=== PATIENT | male | born 1975 | race Caucasian/White ===

== ENCOUNTER 2016-08-04 07:39 | Emergency (ER) | payer BC ==
[2016-08-04 07:44] VITALS: BP 106/67
--- NOTE | 2016-08-04 14:52 | UC ---
Cristobal Warner Aidan, scribed for Cristina Sellers MD on 08/04/16 at 0815 . Skin Complaint HPI - HPI Summary HPI Summary: 41 y/o male presents to the Urgent Care with a complaint of an acute, constant, moderate, red, bumpy rash on the left cheek that began roughly 2 weeks ago and has spread in the past 2 days. For the past month, he had a similar rash on the right cheek that has resolved. There is no associated pain or itch. Pt applied cortisone, which did not reduce the rash. He has been cleaning the rash with Diol soap and water. He denies using hydrogen peroxide, after shave, or alcohol on the rash. Additionally, he denies any cough, cold, or previous similar rash. Pt is a diabetic. His last hemoglobin A1C was 6.9. Additional Hx of chicken pox in the past. For allergies, he uses antihistamines daily. - History of Current Complaint Chief Complaint: UCRas Time Seen by Provider: 08/04/16 07:45 Stated Complaint: RASH Hx Obtained From: Patient Onset/Duration: Sudden Onset, Lasting Weeks, Still Present Skin Exposure Onset/Duration: Weeks Ago, Worse Since: - 2 days ago Timing: Constant Onset Severity: Moderate Current Severity: Moderate Pain Intensity: 0 - Pt stated that he has no pain Pain Scale Used: 0-10 Numeric Location: Face - left cheek Character: Redness, Raised - hive-like bumps Aggravating: Other - unknown Alleviating: Other - unknown Associated Signs & Symptoms: Positive: Negative Related History: Possible Reaction to: Environmental Exposure - Allergy/Home Medications Allergies/Adverse Reactions: Allergies Allergy/AdvReac Type Severity Reaction Status Date / Time Dust Mite Extract Allergy Intermediate Wheezing Verified 08/02/15 07:33 Prochlorperazine Allergy See Comment Verified 08/02/15 07:33 [From Compazine] Hay Fever Allergy Intermediate Wheezing Uncoded 01/03/15 09:02 Home Medications: Home Medications Lisinopril [Zestril 10 MG-] 10 mg PO DAILY 08/04/16 [History Confirmed 08/04/16] Review of Systems Constitutional: Negative Skin: Rash - to left cheek Eyes: Negative ENT: Negative Respiratory: Negative Cardiovascular: Negative Gastrointestinal: Negative Genitourinary: Negative Motor: Negative Neurovascular: Negative Musculoskeletal: Negative Neurological: Negative Psychological: Negative All Other Systems Reviewed And Are Negative: Yes PMH/Surg Hx/FS Hx/Imm Hx Endocrine History: Diabetes Other History Of: Negative For: Anticoagulant Therapy - Surgical History Surgical History: Yes Surgery Procedure, Year, and Place: open heart surgery 2000, TESTICULAR SURGERY - Family History Known Family History: Positive: Hypertension - Social History Occupation: Employed Full-time Lives: Alone Alcohol Use: None Substance Use Type: None Smoking Status (MU): Never Smoked Tobacco - Immunization History Most Recent Influenza Vaccination: 2011 Most Recent Tetanus Shot: less then 10 years ago Physical Exam Triage Information Reviewed: Yes Appearance: Well-Nourished Vital Signs: Initial Vital Signs Temp 97.6 F 08/04/16 07:42 Pulse 66 08/04/16 07:42 Resp 18 08/04/16 07:42 BP 106/67 08/04/16 07:42 Pulse Ox 98 08/04/16 07:42 Vital Signs Reviewed: Yes Eye Exam: Normal ENT Exam: Normal ENT: Positive: Normal ENT inspection Neck exam: Normal Neck: Positive: No Lymphadenopathy Respiratory Exam: Normal, Other - no dyspnea, no tachypnea Cardiovascular Exam: Normal, Other - heart rate regular, good general skin color , good capillary refill Abdominal Exam: Normal Abdomen Description: Positive: Nontender, No Organomegaly, Soft Bowel Sounds: Positive: Present Musculoskeletal Exam: Normal Musculoskeletal: Positive: Strength Intact Neurological Exam: Normal, Other - non focal, grossly intact Psychological Exam: Normal, Other - conversing easily and appropriately Skin: Positive: rashes - Red bumpy area, irregularly shaped at maximum length of 13cm and maximum width of 3.5cm Course/Dx - Course Course Of Treatment: S/sx c/w dermatitis. Unclear etiology but likely contact and irritantant related. C/n exclude allergic-type. Has upcoming appt with Court Assistant next month. Reports that prednisone taper has helped in the past (none recent). Considered zoster, but unlikely 2/2 not in specific dermatome, also recent opposite side, also similar sx as above in the past. Recommend facial shaving holiday at least one week, he agrees. Less likely cellulitic, but rx mupirocin in the event of bioburden increase. Rx prednisone taper, d/w pt. Will watch blood glucose closely. Avoid astringents, and start mild unscented soap. Questions answered as posed answered to the best of my ability. - Diagnoses Provider Diagnoses: facial dermatitis Discharge - Discharge Plan Condition: Stable Disposition: HOME Prescriptions: Mupirocin 2% OINT* [Bactroban 2 % Oint*] 1 applic TOPICAL DAILY #1 tube predniSONE TAB* [Deltasone TAB*] 10 mg PO DAILY #15 tab Patient Education Materials: Dermatitis (ED) Referrals: Kavita Carroll RN [Primary Care Provider] - Additional Instructions: Avoid astringents. Switch to mild unscented white soap. Minimize washing face to one time daily, if possible. Avoid shaving at least one week. Avoid direct sun exposure to the irritated areas (consider sunscreen or stay indoors while symptoms are ongoing). Avoid hot water to affected areas Avoid swimming pool water to affected areas while still inflamed. Follow up with Court Assistant as scheduled next month. Follow up Len Sanchez NP, per routine. Seek medical attention for worse or new problems. Check blood sugars frequently (twice a day if possible) while taking prednisone. The documentation as recorded by the Cristobal cardenas Aidan accurately reflects the service I personally performed and the decisions made by me, Cristina Sellers MD.
== END 2016-08-04 08:24 | disposition home or self-care (01) ==
LOC: UCEAST 07:39
DX: L30.9 Dermatitis, unspecified (principal); E11.9 Type 2 diabetes mellitus without complications
CPT/HCPCS: 99212; G0463

== ENCOUNTER 2017-06-29 07:11 | Emergency (ER) | payer BC ==
[2017-06-29 07:27] VITALS: BP 108/71
--- NOTE | 2017-06-29 07:51 | UC ---
Makayla Warner Julia, scribed for Raquel Bruno MD on 06/29/17 at 0740 . Skin Complaint HPI - HPI Summary HPI Summary: This patient is a 41 year old F [place] [facility] [place] chief complaint of poison rachel like symptoms on his left arm since 06/17/17 that is getting worse. Symptoms similar to previous poison rachel reactions. Pt has been treating with topical Benadryl and topical steroids without relief. pt states when get warm or sweaty itching is worse. 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 Patient denies CP SOB, difficulty eating. No concern eye or face involvement. Medications and allergies reviewed. - History of Current Complaint Chief Complaint: UCSkin Time Seen by Provider: 06/29/17 07:31 Stated Complaint: SKIN COMPLAINT Hx Obtained From: Patient Onset/Duration: Lasting Weeks, Still Present Skin Exposure Onset/Duration: Weeks Ago Timing: Constant Onset Severity: Mild Current Severity: Moderate Pain Intensity: 0 Location: Discrete, Other - left arm Character: Pruritus, Redness Aggravating Factor(s): Nothing Alleviating Factor(s): Nothing Associated Signs & Symptoms: Positive: Negative Related History: Possible Reaction to: Environmental Exposure - Allergy/Home Medications Allergies/Adverse Reactions: Allergies Allergy/AdvReac Type Severity Reaction Status Date / Time house dust mite Allergy Wheezing Verified 06/29/17 07:19 prochlorperazine Allergy See Comment Verified 06/29/17 07:19 [From Compazine] Hay Fever Allergy Intermediate Wheezing Uncoded 06/29/17 07:19 Review of Systems Constitutional: Negative Skin: Rash Respiratory: Negative Cardiovascular: Negative All Other Systems Reviewed And Are Negative: Yes PMH/Surg Hx/FS Hx/Imm Hx Previously Healthy: Yes Other History Of: Negative For: Anticoagulant Therapy - Surgical History Surgical History: Yes Surgery Procedure, Year, and Place: open heart surgery 2000, TESTICULAR SURGERY x2 - Family History Known Family History: Positive: Hypertension - Social History 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 Alcohol Use: None Substance Use Type: None Smoking Status (MU): Never Smoked Tobacco - Immunization History Most Recent Influenza Vaccination: 2011 Most Recent Tetanus Shot: less then 10 years ago Physical Exam Triage Information Reviewed: Yes Appearance: Well-Appearing, No Pain Distress, Well-Nourished Vital Signs: Initial Vital Signs Temp 97.4 F 06/29/17 07:23 Pulse 70 06/29/17 07:23 Resp 14 06/29/17 07:23 BP 108/71 06/29/17 07:23 Pulse Ox 98 06/29/17 07:23 Vital Signs Reviewed: Yes Eye Exam: Normal Eyes: Positive: Conjunctiva Clear ENT: Positive: Normal ENT inspection, Hearing grossly normal, Pharynx normal Neck exam: Normal Neck: Positive: Supple, Nontender, No Lymphadenopathy Respiratory Exam: Normal Respiratory: Positive: Chest non-tender, Lungs clear, Normal breath sounds, No respiratory distress, No accessory muscle use Cardiovascular Exam: Normal Cardiovascular: Positive: RRR, No Murmur Musculoskeletal Exam: Normal Neurological Exam: Normal Neurological: Positive: Alert Psychological Exam: Normal Psychological: Positive: Normal Response To Family Skin: Positive: Other - Pt with raised blistery rash to left prox, posterior forearm c/w contact dermatitis. Patches of dry scaling surrounding. Pt with small dime size lesion of same on right elbow Course/Dx - Course Course Of Treatment: pt with contact dermatitis to left forearm adn right elbow. pt otherwise well appearing. will start prednisone taper. avoid heat. return precautions - Diagnoses Provider Diagnoses: contact dermatitis Discharge - Sign-Out/Discharge Documenting (check all that apply): Discharge/Admit/Transfer - Discharge Plan Condition: Stable Disposition: HOME Prescriptions: predniSONE TAB* [Deltasone TAB*] 20 mg PO DAILY #13 tab Patient Education Materials: Poison Rachel (ED) Referrals: Laura KENNEDY BOARD DESIGN ENGINEERKavita [Primary Care Provider] - Additional Instructions: - Take prednisone exactly as prescribed until gone - starting today --Avoid getting over heated (hot showers, hot tubs, exercise) for at least 48 hours - this will make itching worse - Okay to take Benadryl (1 tablets) every 6 hours as needed. This medication may cause drowsiness - do NOT drive, operate machinery or drink alcohol while taking Benadryl -Take pepcid as prescribed - 2 times daily for 7 days - Try to avoid aspirin, NSAIDs (Motrin, Aleve, Naprosyn) for 2-3 days - Okay to apply cool compresses to the area of injury - Contact your doctor or return here with questions or concerns - Billing Disposition and Condition Condition: STABLE Disposition: HOME The documentation as recorded by the Makayla cardenas Julia accurately reflects the service I personally performed and the decisions made by me, Raquel Bruno MD.
== END 2017-06-29 07:52 | disposition home or self-care (01) ==
LOC: UCEAST 07:11
DX: L25.9 Unspecified contact dermatitis, unspecified cause (principal)
CPT/HCPCS: 99212; G0463

== ENCOUNTER 2017-07-29 07:21 | Emergency (ER) | payer BC ==
[2017-07-29 07:31] VITALS: BP 109/66
--- NOTE | 2017-07-29 08:22 | UC ---
Favio Warner Tenzin, scribed for Raquel Bruno MD on 07/29/17 at 0820 . Respiratory Complaint HPI - HPI Summary HPI Summary: Pt is a 42 years old male presenting to the [facility] complaining of cold and cough for over two weeks. Pt is also complaining of cough productive with white and yellow sputum. Pt has drainage down in his throat. Pt notes that he took Sudafed this morning and it helps to alleviate his pain. No aggravating factors were noted. no sob, sob. no wheeze. He does not smoke, drinks or do drugs. He reports that he has allergy and he takes medications for it. + sick contact pt's medications reviewed this visit - History of Current Complaint Chief Complaint: UCRespiratory Stated Complaint: RESP ISSUE Time Seen by Provider: 07/29/17 08:07 Hx Obtained From: Patient Onset/Duration: Lasting Weeks - two weeks. Pain Intensity: 0 Associated Signs And Symptoms: Negative: Fever, Chills - Allergies/Home Medications Allergies/Adverse Reactions: Allergies Allergy/AdvReac Type Severity Reaction Status Date / Time house dust mite Allergy Wheezing Verified 06/29/17 07:19 prochlorperazine Allergy See Comment Verified 06/29/17 07:19 [From Compazine] Hay Fever Allergy Intermediate Wheezing Uncoded 06/29/17 07:19 PMH/Surg Hx/FS Hx/Imm Hx - Additional Past Medical History Additional PMH: NEGATIVE: [place]. Endocrine History: Diabetes Other History Of: Negative For: Anticoagulant Therapy - Surgical History Surgical History: Yes Surgery Procedure, Year, and Place: open heart surgery 2000, TESTICULAR SURGERY x2 - Family History Known Family History: Positive: Hypertension - Social History Occupation: Employed Full-time Lives: With Family Alcohol Use: None Substance Use Type: None Smoking Status (MU): Never Smoked Tobacco - Immunization History Most Recent Influenza Vaccination: 2011 Most Recent Tetanus Shot: less then 10 years ago Review of Systems Constitutional: Negative Skin: Negative Eyes: Negative ENT: Other - drainage down his throat. Respiratory: Cough, Other - Cold Cardiovascular: Negative Gastrointestinal: Negative Genitourinary: Negative Motor: Negative Neurovascular: Negative Musculoskeletal: Negative Neurological: Negative Psychological: Negative All Other Systems Reviewed And Are Negative: Yes Physical Exam - Summary Physical Exam Summary: Vital Signs Reviewed: Yes A+Ox3, no distress congested Eyes: Conjunctiva Clear, JADYN. EOM intact and full ENT: Hearing grossly normal TM x 2 clear, mmoist, uvula midline, turbinates inflammed and boggy, + PND no exudate, no erythema Neck: Positive: Supple no submandibular LA Respiratory: Positive: No respiratory distress, No accessory muscle use + CTA throughout no w/r coarse cough Cardiovascular: RRR nl s1, s2 no m/r CBT <2 sec abd soft + BS nt/nd no guarding, no distension Musculoskeletal Exam: SHARMA x 4 without difficulty Strength Intact, ROM Intact Neurological: Positive: Alert, + sensation throughout Psychological: Positive: Normal Response To Family Skin: Positive: no rash, no ecchymosis Triage Information Reviewed: Yes Vital Signs: Initial Vital Signs Temp 98.2 F 07/29/17 07:28 Pulse 78 07/29/17 07:28 Resp 16 07/29/17 07:28 BP 109/66 07/29/17 07:28 Pulse Ox 99 07/29/17 07:28 Diagnostic Evaluation - Laboratory O2 Sat by Pulse Oximetry: 99 Respiratory Course/Dx - Course Course Of Treatment: Pt with cough anc congestion x 2 weeks. pt has trialed otc med wtihout relief. Pt reprot tactile fevers. Rx abx. hdyrate. decongestant. flonase. secretion precautions - Differential Dx/Diagnosis Provider Diagnoses: acute bronchitis Discharge - Sign-Out/Discharge Documenting (check all that apply): Discharge/Admit/Transfer - Discharge Plan Condition: Stable Disposition: HOME Prescriptions: Albuterol HFA INHALER* [Ventolin HFA Inhaler*] 1 puff INH Q4H PRN #1 mdi PRN Reason: wheeze Azithromycin TAB* [Zithromax TAB (Z-SARAH) 250 mg #6 tabs] 2 tab PO .TODAY, THEN 1 DAILY #1 sarah Patient Education Materials: Acute Bronchitis (ED) Referrals: Laura KENNEDY REEL HOOKER,Kavita [Primary Care Provider] - Additional Instructions: - Take antibiotics exactly as prescribed until gone -Use your albuterol puffer - 2 puffs ever 4-6 hours for the next 2 days - then as needed - continue to take Zytrec and Sudafed -Stay well hydrated - avoid excess caffeine and all alcohol - eat regular, healthy meals - : These infections are spread by oral secretions. Do not share eating or drinking utensils. Frequent hand washing is important. Clean items that may get your secretions on them such as cell phones, ipads, computer mouse, television remotes. Once you have been on antbiotics for 2 days, change your pillowcase and your toothbrush. Clean your CPAP machine as well -Call your doctor, return here or go to the emergency department with any questions or concerns - Billing Disposition and Condition Condition: STABLE Disposition: Home The documentation as recorded by the Favio cardenas Tenzin accurately reflects the service I personally performed and the decisions made by me, Raquel Bruno MD.
== END 2017-07-29 08:25 | disposition home or self-care (01) ==
LOC: UCEAST 07:21
DX: J20.9 Acute bronchitis, unspecified (principal); E11.9 Type 2 diabetes mellitus without complications; Z91.09 Other allergy status, other than to drugs and biological substances; Z88.8 Allergy status to other drugs, medicaments and biological substances
CPT/HCPCS: 99212; G0463

== ENCOUNTER 2017-08-27 20:29 | Emergency (ER) | payer BC ==
[2017-08-27] MEDS ORDERED: Ondansetron ODT TAB* 4 MG SL PRN (20:59)
--- NOTE | 2017-08-27 21:20 | ED ---
Abdominal Pain/Male - History of Current Complaint Chief Complaint: UCGI Stated Complaint: DIARRHEA, STOMACH ACHE Time Seen by Provider: 08/27/17 20:47 Hx Obtained From: Patient Onset/Duration: Lasting Days - diarrhea and vomiting for the last several days. some abdominal pain , no fever Timing: Intermittent Severity Initially: Moderate Severity Currently: Moderate Pain Intensity: 0 Location: Diffuse Radiates: No Character: Dull Aggravating Factor(s): Nothing Alleviating Factor(s): Bowel Movement - Risk Factors Testicular Torsion: Negative Cardiac Risk Factors: Negative - Allergies/Home Medications Allergies/Adverse Reactions: Allergies Allergy/AdvReac Type Severity Reaction Status Date / Time house dust mite Allergy Wheezing Verified 06/29/17 07:19 prochlorperazine Allergy See Comment Verified 06/29/17 07:19 [From Compazine] Hay Fever Allergy Intermediate Wheezing Uncoded 06/29/17 07:19 PMH/Surg Hx/FS Hx/Imm Hx Previously Healthy: Yes Endocrine/Hematology History: Reports: Hx Diabetes - type 2 Denies: Hx Anticoagulant Therapy, Hx Thyroid Disease Cardiovascular History: Reports: Other Cardiovascular Problems/Disorders - CONGENTIAL HEART DISORDER REPAIRED AT AGE 25 Denies: Hx Hypertension Respiratory History: Reports: Other Respiratory Problems/Disorders - ALLERGIES Denies: Hx Asthma, Hx Chronic Obstructive Pulmonary Disease (COPD) GI History: Denies: Hx Ulcer - Cancer History Cancer Type, Location and Year: 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) - Surgical History Surgery Procedure, Year, and Place: open heart surgery 2000, TESTICULAR SURGERY x2 Infectious Disease History: No Infectious Disease History: Denies: Hx Clostridium Difficile, Hx Hepatitis, Hx Human Immunodeficiency Virus (HIV), Hx of Known/Suspected MRSA, Hx Shingles, Hx Tuberculosis, Hx Known/ Suspected VRE, Hx Known/Suspected VRSA, History Other Infectious Disease, Traveled Outside the [place] in Last 30 Days - Family History Known Family History: Positive: Hypertension - Social History Alcohol Use: None Substance Use Type: Reports: None Smoking Status (MU): Never Smoked Tobacco Review of Systems Constitutional: Negative Eyes: Negative ENT: Negative Cardiovascular: Other - congenital heart disease VSD repaired age 25 Respiratory: Negative Positive: Abdominal Pain, Vomiting, Diarrhea Genitourinary: Other - hx. of testicular CA 2003, 2014 Positive: Rash Neurological: Negative Psychological: Normal Positive: Anxious All Other Systems Reviewed And Are Negative: Yes Physical Exam Triage Information Reviewed: Yes Vital Signs On Initial Exam: Initial Vitals Temp Pulse Resp BP Pulse Ox 36.8 C 96 20 117/77 98 08/27/17 20:47 08/27/17 20:47 08/27/17 20:47 08/27/17 20:47 08/27/17 20:47 Vital Signs Reviewed: Yes Appearance: Positive: Well-Appearing Skin: Positive: Warm Head/Face: Positive: Normal Head/Face Inspection Eyes: Positive: Normal ENT: Positive: Normal ENT inspection Neck: Positive: Supple Respiratory/Lung Sounds: Positive: Clear to Auscultation Cardiovascular: Positive: Normal, RRR Abdomen Description: Positive: Nontender, No Organomegaly, Soft Bowel Sounds: Positive: Present Musculoskeletal: Positive: Normal Diagnostics - Vital Signs Vital Signs Temp Pulse Resp BP Pulse Ox 08/27/17 20:47 36.8 C 96 20 117/77 98 - Laboratory Lab Statement: Any lab studies that have been ordered have been reviewed, and results considered in the medical decision making process. Discharge - Discharge Plan Referrals: Radha Jordan [Primary Care Provider] -
[2017-08-27 21:22] VITALS: BP 114/75
[2017-08-27] MEDS ORDERED: Ondansetron ODT TAB* 4 MG PO ONE (21:24)
== END 2017-08-27 22:05 | disposition home or self-care (01) ==
LOC: UCCORT 20:29
DX: R19.7 Diarrhea, unspecified (principal); R10.9 Unspecified abdominal pain; Z91.048 Other nonmedicinal substance allergy status; Z88.8 Allergy status to other drugs, medicaments and biological substances; E11.9 Type 2 diabetes mellitus without complications
CPT/HCPCS: 99212; A9270-GY; G0463

== ENCOUNTER 2017-10-18 14:10 | Emergency (ER) | payer BC ==
--- NOTE | 2017-10-19 09:00 | UC ---
Discharge - Sign-Out/Discharge Documenting (check all that apply): Post-Discharge Follow Up All imaging exams completed and their final reports reviewed: No Studies - Discharge Plan Disposition: LEFT WITHOUT BEING SEEN Referrals: Radha Jordan [Primary Care Provider] - - Billing Disposition and Condition Disposition: Left Without Being Seen
== END 2017-10-18 14:25 | disposition left against medical advice (07) ==
LOC: UCCORT 14:10
DX: R09.89 Other specified symptoms and signs involving the circulatory and respiratory systems (principal); Z53.21 Procedure and treatment not carried out due to patient leaving prior to being seen by health care provider

== ENCOUNTER 2017-10-18 17:14 | Emergency (ER) | payer BC ==
--- NOTE | 2017-10-18 18:17 | ED ---
GI/ HPI - HPI Summary HPI Summary: The pt is a 42 y/[facility] swallowing since 13:45 today. He was transferred from [facility] after a hamburger stuck in is throat. Although improved, the pt feels like there is a foreign body in his throat. He notes esophageal pain rated 2/10 in intensity but denies dyspnea. - History of Current Complaint Chief Complaint: EDForeignBodyEsophag Time Seen by Provider: 10/18/17 18:10 Stated Complaint: F/B IN THROAT Hx Obtained From: Patient Onset/Duration: Started Hours Ago - At 13:45 today, Still Present Timing: Constant Severity: Mild Pain Intensity: 2 Location of Pain: Other - Esophageal Associated Signs and Symptoms: Positive: Negative - Dyspnea - Allergy/Home Medications Allergies/Adverse Reactions: Allergies Allergy/AdvReac Type Severity Reaction Status Date / Time house dust mite Allergy Wheezing Verified 10/18/17 18:54 prochlorperazine Allergy See Comment Verified 10/18/17 18:54 [From Compazine] Hay Fever Allergy Intermediate Wheezing Uncoded 10/18/17 18:54 PMH/Surg Hx/FS Hx/Imm Hx Previously Healthy: No Endocrine/Hematology History: Reports: Hx Diabetes - type 2 Denies: Hx Anticoagulant Therapy, Hx Thyroid Disease Cardiovascular History: Reports: Other Cardiovascular Problems/Disorders - CONGENTIAL HEART DISORDER REPAIRED AT AGE 25 Denies: Hx Hypertension Respiratory History: Reports: Other Respiratory Problems/Disorders - ALLERGIES Denies: Hx Asthma, Hx Chronic Obstructive Pulmonary Disease (COPD) GI History: Denies: Hx Ulcer - Cancer History Cancer Type, Location and Year: 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) - Surgical History Surgery Procedure, Year, and Place: open heart surgery 2000, TESTICULAR SURGERY x2 - Immunization History Immunizations Up to Date: Yes Infectious Disease History: No Infectious Disease History: Denies: Hx Clostridium Difficile, Hx Hepatitis, Hx Human Immunodeficiency Virus (HIV), Hx of Known/Suspected MRSA, Hx Shingles, Hx Tuberculosis, Hx Known/ Suspected VRE, Hx Known/Suspected VRSA, History Other Infectious Disease, Traveled Outside the [place] in Last 30 Days - Family History Known Family History: Positive: Hypertension - Social History Occupation: Employed Full-time Lives: Alone Alcohol Use: None Substance Use Type: Reports: None Smoking Status (MU): Never Smoked Tobacco Review of Systems Positive: Other - Esophageal pain, difficulty swallowing Respiratory: Negative - Dyspnea All Other Systems Reviewed And Are Negative: Yes Physical Exam - Summary Physical Exam Summary: Appearance: The patient is well-nourished in no acute distress and in no acute pain. Skin: The skin is warm and dry and skin color reflects adequate perfusion. HEENT: The head is normocephalic and atraumatic. The pupils are equal and reactive. The conjunctivae are clear and without drainage. Nares are patent and without drainage. Mouth reveals moist mucous membranes and the throat is without erythema and exudate. The external ears are intact. The ear canals are patent and without drainage. The tympanic membranes are intact. Neck: The neck is supple with full range of motion and non-tender. There are no carotid bruits. There is no neck vein distension. Respiratory: Chest is non-tender. Lungs are clear to auscultation and breath sounds are symmetrical and equal. Cardiovascular: Heart is regular rate and rhythm. There is no murmur or rub auscultated. There is no peripheral edema and pulses are symmetrical and equal. Abdomen: The abdomen is soft and non-tender. There are normal bowel sounds heard in all four quadrants and there is no organomegaly palpated. Musculoskeletal: There is no back tenderness noted. Extremities are non-tender with full range of motion. There is good capillary refill. There is no peripheral edema or calf tenderness elicited. Neurological: Patient is alert and oriented to person, place and time. The patient has symmetrical motor strength in all four extremities. Cranial nerves are grossly intact. Deep tendon reflexes are symmetrical and equal in all four extremities. Psychiatric: The patient has an appropriate affect and does not exhibit any anxiety or depression. Triage Information Reviewed: Yes Vital Signs On Initial Exam: Initial Vitals Temp Pulse Resp BP Pulse Ox 98.7 F 88 16 123/81 96 10/18/17 17:15 10/18/17 17:15 10/18/17 17:15 10/18/17 17:15 10/18/17 17:15 Vital Signs Reviewed: Yes Diagnostics - Vital Signs Vital Signs Temp Pulse Resp BP Pulse Ox 10/18/17 17:48 86 123/81 94 10/18/17 17:15 98.7 F 88 16 123/81 96 - Laboratory Lab Statement: Any lab studies that have been ordered have been reviewed, and results considered in the medical decision making process. GIGU Course/Dx - Course Course Of Treatment: Mr. Gonzalez has been having episodes of difficulty swallowing for months and today after eating a hamburger he became unable to manage his secretions. He went to [facility] care and was transferred here to the emergency department. On arrival here he is feeling a little bit better and was given a test drink of water. He was unable to pass the water and Dr. Schmitt was contacted and came to the emergency department. Dr. Schmitt removed a meat foreign body from the esophagus and set him up for follow-up appointment secondary to multiple polyps. He was recovered from conscious sedation and discharged in stable condition. - Diagnoses Provider Diagnoses: Esophageal foreign body - Physician Notifications Discussed Care Of Patient With: Amor Schmitt - Game Preserve Manager Time Discussed With Above Provider: 20:01 Instructed by Provider To: MD Will See In ED Discharge - Sign-Out/Discharge Documenting (check all that apply): Patient Departure - DC - Discharge Plan Condition: Improved Disposition: HOME Patient Education Materials: Esophageal Foreign Body (ED) Referrals: Radha Jordan [Primary Care Provider] - 3 Days Amor Schmitt MD [Medical Doctor] - Additional Instructions: Return to ED for any new or worsening symptoms Follow up with the housing assistant this week. - Billing Disposition and Condition Condition: IMPROVED Disposition: Home - Attestation Statements Document Initiated by Kenibe: Yes Documenting Scribe: Lesli Matos Provider For Whom Kenibe is Documenting (Include Credential): Dr. Paul Michel MD Scribe Attestation: Lesli Warner scribed for Dr. Paul Michel MD on 10/19/17 at 1252. Scribe Documentation Reviewed: Yes Provider Attestation: The documentation as recorded by the Lesli cardenas accurately reflects the service I personally performed and the decisions made by me, Dr. Paul Michel MD
[2017-10-18] MEDS ORDERED: fentaNYL* 50 MCG/ML 2 ML VIAL (100 MCG VIAL) ONE (19:49)
[2017-10-18] MEDS ORDERED: Midazolam* 1 MG/ML 10 ML VIAL (10 MG) ONE (19:49)
--- NOTE | 2017-10-18 20:56 | CONS ---
GASTROENTEROLOGY CONSULT: DATE OF CONSULT: 10/18/17 CONSULTING PHYSICIAN: Jimi Michel. REASON FOR CONSULT: Meat impaction in the esophagus since trying to eat a hamburger at noon today. 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 He has not lost any weight. Today, eating a hamburger, it lodged and he has been unable to handle any fluids since then. He has had a little bit of salivary expectoration. He has a history of acid reflux and was on a prescription, though neither he nor his significant other can remember the name. He was also taking Pepcid sporadically. He says ever since he went on CPAP, he has not needed any acid blockade. The acid indigestion was mostly in middle of the night. PAST MEDICAL HISTORY: 1. Diabetes - on metformin for 3 years. 2. History of ventricular septal defect repaired at [facility] at age 25 - he has been told by his pediatric genetic counselor to extend his follow up into the 20s, but he does not need antibiotics anymore and Dr. Lyn, his current clock assembler, has abided by that principle. 3. Testicular cancer - ages 18 and then 29, treated with radiation and then chemo. Dr. Leong feels he is cured and no longer needs to follow up. 4. Hypertension. 5. Dyslipidemia. 6. Undescended testicle surgery MEDICATIONS: Metformin 500 mg t.i.d.; atorvastatin 20; lisinopril 10; paroxetine 10; albuterol p.r.n.; Depo-Testosterone 2 mL monthly. SOCIAL HISTORY: He has a significant other, Shannon, of 20 years' duration. 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 REVIEW OF SYSTEMS: No history of TB or hemoptysis, asthma, angina, congestive heart failure, arrhythmias, syncope, hepatitis, renal stones, or abdominal surgery. PHYSICAL EXAM: He is an apparently healthy-appearing, middle-aged man, in no distress, mildly overweight. He has no icterus. He has no adenopathy. His lungs are clear and heart sounds are normal. The abdomen is symmetric, rounded without any tenderness. Extremities show no edema. Neurologic is nonfocal, normal cranial nerves. Moving all 4 extremities in coordination. IMPRESSION: Solid food dysphagia building up over time and a ring is anticipated and hoped for. Informed consent was obtained with description of possible admission, possible anesthesia, and possible injury requiring antibiotics. All questions were answered. [id number]/[facility] #: [id number] TAE
[2017-10-18] MEDS ORDERED: Omeprazole CAP* 20 MG PO ONE (20:59)
[2017-10-18 21:59] VITALS: BP 113/62
--- NOTE | 2017-10-18 23:47 | PRO ---
DATE: 10/18/17 - ED REFERRING PHYSICIANS: Dr. Jimi Michel, emergency room; Dr. Max Leong, [facility].* PROCEDURES: 1. Upper gastrointestinal endoscopy and removal of esophageal meat impaction, hiatal hernia with esophagogastric ring. 2. Chronic GERD. 3. Laryngeal polyp. 4. Distal esophageal polyp. 5. Gastric polyps in pyloric area (not biopsied), mid body greater curvature, gastric cardia 3 cm prolapseable and hiatal hernia, lesser curvature mid fundus. 6. Chronic gastritis - biopsies taken and CLOtest. INDICATION: This 42-year-old man today was eating hamburger and had it lodged and he has been unable to handle water or all of his secretions since then. He has been having trouble swallowing recurrently over several months, but has not lost any weight. He does not take any acid blockers. Informed consent was obtained with his significant other present. ENDOSCOPIST: Dr. Schmitt. MEDICATIONS: Midazolam 11, fentanyl 125. FINDINGS: He is a healthy-appearing man with average body build, in no distress. He was positioned on the side. Conscious sedation was administered and monitored and he tolerated it well better than he hinted at saying he had a terrible gag reflex. EGD: Larynx - nodule in mid cord 2.5 to 3 mm on the right, photoed. Esophagus - the upper sphincter and upper esophagus appeared normal. Distal esophagus, there was very firm meat impaction. During the mid portion of procedure, once advanced in 7 or 8 pieces into the stomach, the distal esophagus had a fair amount of scarring. There was a small polypoid nodule, little bit frondy at 9 o'clock orientation at 39 cm, biopsied x2. There was noted a slight ring at about 39.5 to 40 cm. It was symmetric. Stomach - there was a moderate hiatal hernia and high in the gastric cardia, there was a 3-cm polyp, quite erythematous with an even surface pattern that would prolapse into the hiatal hernia or even esophagus with respiration and gagging. It was difficult to approach and mobile to the extent that biopsies were very difficult. Some small specimens were obtained. The gastric fundus had a nodular erythematous appearance and a CLOtest and 2 biopsies were taken. In mid body, greater curvature, there was a 1.5 cm polyp on a short stalk. It was biopsied. There was another polyp, lesser curvature distal fundus, biopsied x1. The distal body and proximal antrum appeared normal. At the level of pylorus, there was a smooth polyp, which was not biopsied given the length of time of the procedure and concerned about aspiration. It was smooth and benign appearing about 1.5 cm. The pylorus was symmetric and normal. Duodenum - normal bulb and second and third portions with some limitation of view from fat distention of the mucosa. IMPRESSION: 1. Esophageal foreign body - resolved. 2. Chronic gastroesophageal reflux disease - PPI will be started. 3. Moderate hiatal hernia. 4. Esophagogastric ring - it will be dilated later. 5. Gastric polyps - at the pylorus and cardia and also mid gastric body and lesser curvature. 6. Chronic gastritis - biopsy pending. 7. Laryngeal nodule - with prior independent assessment. [id number]/[facility] #: [id number] MTDD
== END 2017-10-18 21:58 | disposition home or self-care (01) ==
LOC: ED 17:14
DX: T18.108A Unspecified foreign body in esophagus causing other injury, initial encounter (principal); X58.XXXA Exposure to other specified factors, initial encounter; Y92.9 Unspecified place or not applicable
CPT/HCPCS: 87077; 88305; 88342; 99156; 99157; 99283; A9270-GY; J2250; J3010